=== PATIENT | female | born 1970 | race Caucasian/White ===

== ENCOUNTER 2022-12-17 15:18 | Emergency (ER) | payer BC ==
[~2022-12-17] VITALS: Ht 167.6 cm; Wt 77.1 kg
[2022-12-17] MEDS ORDERED: AMOXICILLIN500 M2 PO (19:23)
== END 2022-12-17 19:30 | disposition home or self-care (01) ==
LOC: ED 15:18
DX: J02.0 Streptococcal pharyngitis (principal); Z91.040 Latex allergy status; Z88.5 Allergy status to narcotic agent; Z20.822 Contact with and (suspected) exposure to COVID-19